=== PATIENT | male | born 1970 | race Caucasian/White ===

== ENCOUNTER 2017-04-15 06:14 | Emergency (ER) | payer BC ==
[2017-04-15] MEDS ORDERED: ALBUTEROL SULFATE HFA (90 MCG/PUFF) 8 GM MDI (1 MDI/ER DISP) IH PRN (07:13)
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
[2017-04-15] MEDS ORDERED: PREDNISONE 20 MG TABLET PO ONE (07:14)
[2017-04-15 07:34] VITALS: BP 122/81
--- NOTE | 2017-04-15 21:00 | EKG REPORT ---
SEVERITY:- NORMAL ECG - SINUS RHYTHM : Confirmed by: Cinthya Cobb 15-Apr-2017 21:00:25
== END 2017-04-15 07:29 | disposition home or self-care (01) ==
LOC: ER 06:14
DX: T78.40XD Allergy, unspecified, subsequent encounter (principal); R06.02 Shortness of breath; X58.XXXD Exposure to other specified factors, subsequent encounter
CPT/HCPCS: 93005; 99285; 93010; J7512; J3490